=== PATIENT | male | born 1955 | race Caucasian/White ===

== ENCOUNTER 2019-12-19 22:27 | Emergency (ER) | payer SELFPAY ==
[2019-12-19] MEDS ORDERED: ONDANSETRON INJ 4 MG/2 ML VIAL IV ONE (22:31)
[2019-12-19] MEDS ORDERED: SODIUM CHLORIDE 0.9% (FLUSH) 10 ML SYG IV PRN (22:31)
[2019-12-19] MEDS ORDERED: NITROGLYCERIN 0.4 MG 25 EA TAB SL ONE (22:31)
--- NOTE | 2019-12-19 23:01 | RAD ---
EXAM DESCRIPTION: Chest,1 View CLINICAL HISTORY: 64 years Male, back pain COMPARISON: None. FINDINGS: The heart and mediastinum are within normal limits. The lung romero are clear of active infiltrates. The pulmonary vascularity is unremarkable. No active pleural disease is present. IMPRESSION: 1. No active infiltrates Electronically signed by: Terrance Pineda MD 12/19/2019 10:59 PM CDT
--- NOTE | 2019-12-19 23:07 | ED.PDOC ---
History of Present Illness - General Chief Complaint: Neuro Symptoms/Deficits Time Seen by Provider: 12/19/19 22:31 Source: RN notes reviewed, Vital Signs reviewed Exam Limitations: intoxication - History of Present Illness Initial Comments: Patient is a 64-year-old white male who presents with complaints of low back pain. On patient's arrival patient is very lethargic, sleepy and slurring words. The pain is stabbing in nature. Worse with movement. Nothing makes it better. Timing/Duration: 1 week Severity: severe Improving Factors: nothing Worsening Factors: movement Associated Symptoms: denies symptoms Allergies/Adverse Reactions: Allergies NO KNOWN ALLERGY Allergy (Verified 12/19/19 22:43) Review of Systems - Review of Systems Constitutional: States: see HPI, weakness. Denies: chills, fever EENTM: States: no symptoms reported. Denies: eye pain, blurred vision, double vision Respiratory: States: no symptoms reported. Denies: cough, short of breath Cardiology: States: see HPI, syncope - Patient with reported syncope at home. Denies: chest pain, palpitations Gastrointestinal/Abdominal: States: no symptoms reported. Denies: abdominal pain, diarrhea, nausea, vomiting Genitourinary: States: no symptoms reported. Denies: discharge, dysuria Musculoskeletal: States: see HPI, back pain. Denies: neck pain Skin: States: no symptoms reported. Denies: change in color, rash Neurological: States: no symptoms reported. Denies: headache, numbness, paresthesia, weakness Endocrine: States: no symptoms reported Hematologic/Lymphatic: States: no symptoms reported All other Systems: No Change from Baseline Family Medical History - Family History Mother Family History: Unknown Physical Exam - Physical Exam General Appearance: Lethargic, Well Developed, Well Hydrated, Well Nourished Eye Exam: bilateral abnormal pupil - small, minimally reactive Ears, Nose, Throat: hearing grossly normal, normal ENT inspection, normal pharynx Neck: non-tender, full range of motion, supple Respiratory: chest non-tender, lungs clear, normal breath sounds, no respiratory distress, no accessory muscle use Cardiovascular/Chest: normal peripheral pulses, regular rate, rhythm, no edema, no gallop, no JVD, no murmur Peripheral Pulses: radial,right: 2+, radial,left: 2+ Gastrointestinal/Abdominal: normal bowel sounds, non tender, soft, no organomegaly, no pulsatile mass Back Exam: normal inspection, no CVA tenderness, no vertebral tenderness Extremity: normal range of motion, non-tender, normal inspection, no pedal edema 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 12/20/19 02:51 Patient's lab work is relatively normal. He does have methamphetamines in his urine drug screen. 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 Chest x-ray is unremarkable. CT scan shows a 3.9 x 3.7 x 6.4 sonometer infrarenal aneurysm with reactive stranding around the aneurysm. There is mural thrombus but no sign of leakage. Plan on transfer to tertiary care center for further evaluation of this aneurysm. I discussed this plan of care with the patient he voices understanding and agreement with the plan of care. Sd Nieto M.D. #[id number] 12/20/19 03:[address] Sheehan at [facility]. - Results/Orders Results/Orders: EXAM DESCRIPTION: Chest,1 View CLINICAL HISTORY: 64 years Male, back pain COMPARISON: None. FINDINGS: The heart and mediastinum are within normal limits. The lung romero are clear of active infiltrates. The pulmonary vascularity is unremarkable. No active pleural disease is present. IMPRESSION: 1. No active infiltrates Electronically signed by: Terrance Pineda MD 12/19/2019 10:59 PM CDT EKG performed 19 December 2019 at 2222 hrs.: Normal sinus rhythm at 80 bpm, septal infarct age indeterminate, abnormal EKG. No prior EKGs available for comparison at this time. EXAM DESCRIPTION: Abdomen/Pelvis w/Contrast CLINICAL HISTORY: 64 years Male back pain and abdominal pain COMPARISON: None TECHNIQUE: Multiple contiguous axial CT slices were taken from the diaphragms to the pubic symphysis after intravenous administration of Iodinated contrast. This exam was performed according to our departmental dose-optimization program, which includes automated exposure control, adjustment of the mA and/or kV according to patient size and/or use of iterative reconstruction technique. FINDINGS: The lung bases are clear. Visualized cardiomediastinal structures are normal. Benign-appearing 1 cm hepatic cyst near the dome. The Gallbladder, bile ducts, pancreas, spleen and adrenals are normal. The kidneys, ureters and bladder are unremarkable, accounting for left upper pole simple renal cyst. Incidental retroaortic left renal vein, a normal anatomic variant. The prostate is enlarged. The small bowel is normal. The appendix is normal. The large bowel is normal. No ascites, pneumatosis or pneumoperitoneum. There is an infrarenal abdominal aortic aneurysm which measures 3.7 x 3.9 cm in largest axial dimension and spans approximately 6.4 cm in maximal craniocaudal dimension. Eccentric ventral wall of the aneurysm, with associated wall thickening. There is also a large amount of mural thrombus. Surrounding the aneurysm, there is retroperitoneal fat stranding as well as multiple reactive appearing retroperitoneal lymph nodes. There is no evidence of aneurysm rupture. The bilateral common iliac arteries are normal in caliber. There are no abdominal wall hernia defects. No destructive osseous lesions. IMPRESSION: 1. Eccentric 3.9 cm infrarenal abdominal aortic aneurysm containing mural thrombus and demonstrating features concerning for inflammatory subtype. No evidence of rupture. Recommend referral to a vascular specialist. 2. Incidental retroaortic left renal vein, a normal anatomic variant. Electronically signed by: Humberto Carlson MD 12/20/2019 2:30 AM 12/19/19 22:31 IV Care:Saline Lock per Protoc QSHIFT Telemetry .ONCE Sodium Chloride 0.9% (Flush) [Saline Flush Syringe] 10 ml IV PRN PRN EKG Stat Pulse Ox Stat 12/19/19 22:32 Pulse Oximetry Assessment DAILY 12/20/19 00:39 Hold Metformin x 48Hrs [id number] Laboratory Results - last 24 hr 12/19/19 12/19/19 12/19/19 22:45 22:53 22:53 WBC 6.2 RBC 4.86 Hgb 12.2 L Hct 37.1 L MCV 76.3 L MCH 25.0 L MCHC 32.8 L RDW 13.7 Plt Count 355 MPV 5.8 L Absolute Neuts (auto) 3.70 Absolute Lymphs (auto) 1.70 Absolute Monos (auto) 0.60 Absolute Eos (auto) 0.10 Absolute Basos (auto) 0.00 Neutrophils % 59.8 Lymphocytes % 27.7 Monocytes % 10.5 H Eosinophils % 1.5 Basophils % 0.5 PT 10.8 INR 1.09 PTT (SP) 27.6 Sodium 137 Potassium 4.4 Chloride 104 Carbon Dioxide 24 Anion Gap 13.4 BUN 20 H Creatinine 0.93 BUN/Creatinine Ratio 21.5 H Random Glucose 107 H Serum Osmolality 276.9 Calcium 8.1 L Magnesium 2.1 Total Bilirubin 0.6 Direct Bilirubin 0.1 Indirect Bilirubin 0.5 AST 14 ALT 10 Alkaline Phosphatase 69 Creatine Kinase 34 L CK-MB (CK-2) 0.9 CK-MB (CK-2) % Not Reportable Troponin I < 0.02 B-Natriuretic Peptide 64.1 Serum Total Protein 7.5 Albumin 2.9 L Urine Color Yellow Urine Appearance Clear Urine pH 7.0 Ur Specific Parsons 1.015 Urine Protein Negative Urine Glucose (UA) Negative Urine Ketones Negative Urine Blood Negative Urine Nitrite Negative Urine Bilirubin Negative Urine Urobilinogen 0.2 Ur Leukocyte Esterase Negative Urine RBC 0 Urine WBC 1-3 Ur Epithelial Cells 0 Urine Bacteria 0 Urine Opiates Screen Negative Urine Barbiturates Negative Ur Phencyclidine Scrn Negative U Amphetamin/Meth Scrn Positive H U Benzodiazepines Scrn Negative U Cocaine Metab Screen Negative U Cannabinoids Screen Negative Departure - Departure Clinical Impression: Methamphetamine abuse, Aneurysm of infrarenal abdominal aorta, Back pain Time of Disposition: 03:35 Disposition: Transfer to Hospital Condition: Serious Departure Forms: ED Discharge - Pt. Copy, Patient Portal Self Enrollment Critical Care Note - Critical Care Note Total Time (mins): 60 Transfer to Outside Facility - Transfer Information Decision to Transfer Date: 12/20/19 Decision to Transfer Time: 02:53 Reason for Transfer: specialized care not available Accepting Facility: [facility]
--- NOTE | 2019-12-20 02:32 | CT ---
EXAM DESCRIPTION: Abdomen/Pelvis w/Contrast CLINICAL HISTORY: 64 years Male back pain and abdominal pain COMPARISON: None TECHNIQUE: Multiple contiguous axial CT slices were taken from the diaphragms to the pubic symphysis after intravenous administration of Iodinated contrast. This exam was performed according to our departmental dose-optimization program, which includes automated exposure control, adjustment of the mA and/or kV according to patient size and/or use of iterative reconstruction technique. FINDINGS: The lung bases are clear. Visualized cardiomediastinal structures are normal. Benign-appearing 1 cm hepatic cyst near the dome. The Gallbladder, bile ducts, pancreas, spleen and adrenals are normal. The kidneys, ureters and bladder are unremarkable, accounting for left upper pole simple renal cyst. Incidental retroaortic left renal vein, a normal anatomic variant. The prostate is enlarged. The small bowel is normal. The appendix is normal. The large bowel is normal. No ascites, pneumatosis or pneumoperitoneum. There is an infrarenal abdominal aortic aneurysm which measures 3.7 x 3.9 cm in largest axial dimension and spans approximately 6.4 cm in maximal craniocaudal dimension. Eccentric ventral wall of the aneurysm, with associated wall thickening. There is also a large amount of mural thrombus. Surrounding the aneurysm, there is retroperitoneal fat stranding as well as multiple reactive appearing retroperitoneal lymph nodes. There is no evidence of aneurysm rupture. The bilateral common iliac arteries are normal in caliber. There are no abdominal wall hernia defects. No destructive osseous lesions. IMPRESSION: 1. Eccentric 3.9 cm infrarenal abdominal aortic aneurysm containing mural thrombus and demonstrating features concerning for inflammatory subtype. No evidence of rupture. Recommend referral to a vascular specialist. 2. Incidental retroaortic left renal vein, a normal anatomic variant. Electronically signed by: Humberto Carlson MD 12/20/2019 2:30 AM CDT
[2019-12-20] MEDS ORDERED: ONDANSETRON INJ 4 MG/2 ML VIAL IV ONE (03:48)
[2019-12-20] MEDS ORDERED: HYDROmorphone HCL INJ 2 MG/ML VIAL IV ONE (03:48)
[2019-12-20 03:56] VITALS: O2SAT 96
[2019-12-20 03:57] VITALS: BP 139/96; TEMP 97.3
== END 2019-12-20 04:58 | disposition short-term general hospital (02) ==
LOC: ER 22:27
DX: I71.4 Abdominal aortic aneurysm, without rupture (principal); M54.5 Low back pain; F15.10 Other stimulant abuse, uncomplicated
CPT/HCPCS: 36415; 71045; 74177; 80048; 80076; 80307; 81001; 82550; 82553; 83880; 84484; 85025; 85610; 85730; 93005; A4216; J1170; J2405